=== PATIENT | female | born 1970 | race African-American/Black ===

== ENCOUNTER 2024-03-02 17:07 | Emergency (ER) | payer OTHER ==
[~2024-03-02] VITALS: Ht 170.2 cm; Wt 72.6 kg
[2024-03-02] MEDS ORDERED: BICT1TAB PO (17:20)
[2024-03-02] MEDS ORDERED: THIAMINE HCL 100 MG TABLET PO ONE (17:30)
[2024-03-02 17:46] VITALS: BP 119/77; O2SAT 96
== END 2024-03-02 17:46 | disposition home or self-care (01) ==
LOC: ER 17:08
DX: F10.129 Alcohol abuse with intoxication, unspecified (principal); Z79.899 Other long term (current) drug therapy; Y90.9 Presence of alcohol in blood, level not specified
CPT/HCPCS: A4606; A4663